=== PATIENT | female | born 2005 | race African-American/Black ===

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

== ENCOUNTER 2025-07-19 08:02 | Emergency (ER) | payer OTHER ==
[~2025-07-19] VITALS: Ht 157.5 cm; Wt 76.2 kg
[2025-07-19] MEDS: CYCLOBENZAPRINE 10 MG TABLET PO ONE (11:51)
[2025-07-19] MEDS: LIDOCAINE 5% PATCH TD ONE (11:51)
[2025-07-19] MEDS: KETOROLAC 60 MG/2 ML VIAL IM ONE (11:52)
[2025-07-19] MEDS ORDERED: LIDO1ADH93 TD (14:05)
[2025-07-19] MEDS ORDERED: CYCL-707 PO (14:05)
[2025-07-19] MEDS ORDERED: MEDR4PAK PO (14:05)
[2025-07-19 14:19] VITALS: BP 111/72; TEMP 98.6; O2SAT 95
== END 2025-07-19 14:20 | disposition home or self-care (01) ==
LOC: M ED 08:02
DX: S39.012A Strain of muscle, fascia and tendon of lower back, initial encounter (principal); Y92.9 Unspecified place or not applicable; Y93.B9 Activity, other involving muscle strengthening exercises; Y99.9 Unspecified external cause status; Z79.899 Other long term (current) drug therapy
CPT/HCPCS: 72131; 96372; 99283; J1885; J2919